=== PATIENT | female | born 1965 | race Hispanic/Latino ===

== ENCOUNTER 2020-02-02 08:54 | Day surgery (SDC) | payer OTHER ==
[2020-02-02] MEDS ORDERED: CEFAZOLIN/SWI 1gm 1 GM/10 ML SYR ONE (09:42)
[2020-02-02] MEDS ORDERED: SCOPOLAMINE HYDROBROMIDE PATCH TD ONE (09:42)
[2020-02-02] MEDS ORDERED: Ringers Lactate 1,000 ML IV ONE ×4 (09:42→14:53)
[2020-02-02] MEDS ORDERED: HYDROCODONE/APAP 5/325 MG TAB ONE (09:46)
[2020-02-02] MEDS ORDERED: PREGABALIN 75 MG CAP PO ONE (10:15)
[2020-02-02] MEDS ORDERED: LIDOCAINE 1% W/EPI 1:100,000 MDV 20 ML VIAL ONE (10:20)
[2020-02-02] MEDS ORDERED: NA CHLORIDE 0.9% 2,000 ML ONE (10:20)
[2020-02-02] MEDS ORDERED: EPINEPHRINE/PF 1 MG/ML AMP ONE ×2 (10:20→12:08)
[2020-02-02] MEDS ORDERED: NS 0.9% VIAL 10 ML ONE (10:20)
[2020-02-02] MEDS ORDERED: Mastisol Adhesive Liq ONE (10:21)
[2020-02-02] MEDS ORDERED: MIDAZOLAM HCL 2 MG/2 ML INJ ONE (10:24)
[2020-02-02] MEDS ORDERED: propofoL 200 MG/20 ML VIAL IV ONE (10:24)
[2020-02-02] MEDS ORDERED: ROCURONIUM 50 MG/5 ML VIAL IV ONE (10:25)
[2020-02-02] MEDS ORDERED: GLYCOPYRROLATE 0.2 MG/ML SYR ONE (10:25)
[2020-02-02] MEDS ORDERED: ONDANSETRON 4 MG/2 ML VIAL ONE ×2 (10:25→16:32)
[2020-02-02] MEDS ORDERED: FENTANYL CITR 250 MCG/5 ML ONE (10:25)
[2020-02-02] MEDS ORDERED: LIDOCAINE 2% MPF 5 ML VIAL ONE (10:25)
[2020-02-02] MEDS ORDERED: dexAMETHasone 10 MG/ML VIAL ONE (10:33)
[2020-02-02] MEDS ORDERED: KETOROLAC 30 MG/ML INJ ONE (10:33)
[2020-02-02] MEDS ORDERED: FENTANYL CITR 100 MCG/2 ML ONE ×2 (10:33→13:41)
[2020-02-02] MEDS ORDERED: LIDOCAINE JELLY 2%- 5 ML TUBE ONE (10:36)
[2020-02-02] MEDS ORDERED: LANO/MINERAL OIL/PETRO 3.5 GM ONE (10:45)
[2020-02-02] MEDS ORDERED: EPINEPHrine 1 MG/10 ML SYR ONE (12:08)
[2020-02-02] MEDS ORDERED: EPHEDRINE SULF 50 MG/ML VIAL ONE (12:17)
[2020-02-02] MEDS ORDERED: Phenylephrine HCl 10 MG/ML 1 ML VIAL ONE ×2 (12:18→13:55)
[2020-02-02] MEDS: MORPHINE 4 MG/ML SYR ONE ×2 (16:04→16:09)
[2020-02-02] MEDS ORDERED: CODEINE 30MG/APAP 300MG TAB ONE (17:05)
[2020-02-02 17:41] VITALS: BP 95/61; TEMP 97; O2SAT 100
--- NOTE | 2020-02-03 01:06 | OP ---
Surgeon: Brian Ram MD Preoperative Diagnosis: Lipodystrophy of the abdomen, flanks, back, and the tear troughs. Postoperative Diagnosis: Lipodystrophy of the abdomen, flanks, back, and the tear troughs. Procedure Performed: Fat transfer tear troughs, mini face lift, and liposuction of the abdomen, flan ks, back. Anesthesia: General. Description Of Procedure: After satisfactory induction of general anesthesia was performed, she was prepped circumferentially with DuraPrep, dry sterile drapes in usual manner. Incision was made supra umbilical and then anterior iliac spine bilateral with a scalpel. A 2.5 mm cannula was used to infus e the abdomen anterior 800 in the right flank, 450 with left flank with 300 from the anterior abdomen , 250 from right flanks, 350 the left flank. The patient was then turned prone. We prepped and drap ed and then 5 cc infused through a midline incision region and then at the bra line ____ were infused and 800 cc aspirated. The wounds were closed with 4-0 PDS for the top over the bra line and the umbilical. Steri-Strips applied to other wounds and later compression garments applied . The patient was placed in supine and then the face was injected with 1% lidocaine with epinephrine along the preauricular, postauricular, and along the jaw line. Then, face was prepped with Betadine , dry sterile drapes applied in the usual manner. A previous mini face incision was incised excising the scar going preauricular and postauricular and then the flap was elevated into the subcu level al l the way to the nasolabial fold overlying the mandible. This was done . Excess skin was marked off, deepithelialized anteriorly, and rotated, and then a 3-0 Prolene suture was used to tack it to the area up. Then, the wound was closed with running 4-0 PDS sutures. Left side wa s done in identical manner. Some of the fat that was harvested was left to gravitate, approximately 10 cc were used. There were placed in 1 cc syringes afterward it was filtered and then injected. An 18-gauge needle was used to make a hole and it was injected using an 18-gauge fat transfer cannula a nd 0.7 on the left and 0.8 on the right. The face-lift incision was left open. The patient tolerate d the procedure well and returned to Recovery. GHISLAINE/LARISA Voice ID: [id number] Report ID: [id number]
== END 2020-02-02 17:20 | disposition home or self-care (01) ==
LOC: OR 08:54
PROVIDERS: ATTEND Specialist
PROC: 0W020ZZ Alteration of Face, Open Approach (ICD-10-PCS; 2020-02-02)
PROC: 0J083ZZ Alteration of Abdomen Subcutaneous Tissue and Fascia, Percutaneous Approach (ICD-10-PCS; principal; 2020-02-02 11:00)
PROC: 0J073ZZ Alteration of Back Subcutaneous Tissue and Fascia, Percutaneous Approach (ICD-10-PCS; 2020-02-02 11:00)
DX: E65 Localized adiposity (principal); E88.1 Lipodystrophy, not elsewhere classified; L98.7 Excessive and redundant skin and subcutaneous tissue; H02.403 Unspecified ptosis of bilateral eyelids; Z20.828 Contact with and (suspected) exposure to other viral communicable diseases
CPT/HCPCS: 15877; 15828; U0003; J2704; J0171 ×3; J2370; J2250; J3010 ×2; J1100; J0690; J7120 ×4; J7030; J2405 ×2